=== PATIENT | female | born 1985 | race Caucasian/White ===

== ENCOUNTER 2019-07-17 01:54 | Emergency (ER) | payer SELFPAY ==
--- NOTE | 2019-07-17 03:00 | ER Document Report ---
ED General - General Chief Complaint: Swelling of Lower Extremity Stated Complaint: LEG SWELLING Time Seen by Provider: 07/17/19 02:50 Primary Care Provider: [facility] [Provider Group] - Follow up in 1 week BO GUPTA MD [ACTIVE STAFF] - Follow up as needed Notes: Patient is a 33-year-old female with a history of morbid obesity, smoking, and chronic lower extremity edema that comes emergency department for chief complaint of swelling to her hands and her feet much more than usual. She states that she is on Lasix 40 mg twice a day, she has been compliant, however over the past 2 days she has had significantly more swelling than usual and now her legs hurt. She also states that she has more generalized weakness, she generally does not feel good, and she has more dyspnea on exertion. She denies chest pain, fever, cough, she states she still urinating. TRAVEL OUTSIDE OF THE [place] IN LAST 30 DAYS: No - Related Data Allergies/Adverse Reactions: No Known Allergies Allergy (Verified 07/17/19 02:37) Past Medical History - General Information source: Patient - Social History Smoking Status: Current Every Day Smoker Chew tobacco use (# tins/day): No Smoking Education Provided: Yes - <3 min Frequency of alcohol use: None Drug Abuse: None Lives with: Spouse/Significant other Family History: Reviewed & Not Pertinent Patient has suicidal ideation: No Patient has homicidal ideation: No Renal/ Medical History: Reports: Hx Ovarian Cysts - PCO S Past Surgical History: Reports: Hx Adenoidectomy, Hx Cholecystectomy, Hx Tonsillectomy - and addenoids - Immunizations Immunizations up to date: Yes Hx Diphtheria, Pertussis, Tetanus Vaccination: Yes Review of Systems - Review of Systems Constitutional: No symptoms reported EENT: No symptoms reported Cardiovascular: See HPI Respiratory: See HPI Gastrointestinal: No symptoms reported Genitourinary: No symptoms reported Female Genitourinary: No symptoms reported Musculoskeletal: No symptoms reported Skin: No symptoms reported Hematologic/Lymphatic: No symptoms reported Neurological/Psychological: No symptoms reported Physical Exam - Vital signs Vitals: Temp Pulse Resp BP Pulse Ox 98.4 F 108 H 20 147/87 H 96 07/17/19 01:58 07/17/19 01:58 07/17/19 01:58 07/17/19 01:58 07/17/19 01:58 - Notes Notes: GENERAL: Alert, interacts well. No acute distress. HEAD: Normocephalic, atraumatic. EYES: Pupils equal, round, and reactive to light. Extraocular movements intact. ENT: Oral mucosa moist, tongue midline. Oropharynx unremarkable. Airway patent. NECK: Full range of motion. Supple. Trachea midline. LUNGS: Clear to auscultation bilaterally, no wheezes, rales, or rhonchi. No respiratory distress. HEART: Regular rate and rhythm. No murmur ABDOMEN: Soft, non-tender. Non-distended. Bowel sounds present in all 4 quadrants. GENITOURINARY: Deferred EXTREMITIES: Moves all 4 extremities spontaneously. 2+ pitting edema of the lower extremities below the knee. Small amount of skin staining of the lower ext remities at the distal anterior distal tibia as well. BACK: no cervical, thoracic, lumbar midline tenderness. No saddle anesthesia, normal distal neurovascular exam. Moves all extremities in full range of motion. NEUROLOGICAL: Alert and oriented x3. Normal speech. Cranial nerves II through XII grossly intact. PSYCH: Normal affect, normal mood. SKIN: Warm, dry, normal turgor. No rashes or lesions noted. Course - Re-evaluation Re-evalutation: Patient talkative, I was able to lay her flat and she did not have any difficulty breathing, she was able to ambulate without dyspnea. No hypoxia. She is not tachycardic on my exam. EKG nonischemic. No hypertrophy either. Chest x-ray unremarkable without vascular congestion. Patient has peripheral edema but no other notable findings. Patient also has findings of developing venous insufficiency with skin staining. Urinalysis and protein on chemistry do not suggest nephrotic syndrome. CBC unremarkable, chemistry unremarkable, BNP is not elevated, troponin is not elevated. Appears to be isolated peripheral edema who is venous insufficiency. Patient took a dose of Lasix prior to arrival and she is urinated twice. She states that she is not having as much success with that this week however. Patient will be doubled up on her Lasix for the next several days, be given p otassium supplement, and she will be established with a local primary care (she had primary care at home, she is running out of Lasix now, she is looking for primary care here). She is also waiting for insurance to kick in. She will be referred to clinic where she does not need it first. Patient given IV Lasix here. Discussed all labs, discussed recommendations, placed in JUSTIN compression stockings here, discussed follow-up, discussed return precautions. Patient states understanding and agreement. - Vital Signs Vital signs: Temp Pulse Resp BP Pulse Ox 98.4 F 108 H 20 127/54 H 93 07/17/19 01:58 07/17/19 01:58 07/17/19 04:59 07/17/19 05:00 07/17/19 04:59 - Laboratory Result Diagrams: 07/17/19 03:43 07/17/19 03:43 - EKG Interpretation by Me Additional EKG results interpreted by me: EKG shows sinus rhythm at a rate of 100, QTc 449, no T wave inversions or ST segment changes in consecutive leads, MO interval of 140. Normal axis. Discharge - Discharge Clinical Impression: Swelling of lower extremity Condition: Stable Disposition: HOME, SELF-CARE Additional Instructions: There is no evidence of congestive heart failure, kidney failure, or other concerning findings on your evaluation. This appears to be fluid retention with venous insufficiency. I recommend elevation of your legs as much as possible, use of the compression stockings especially at night, and increase the Lasix to 40 mg twice a day for the next 5 days before resuming your normal dosing. Take potassium supplement as prescribed as well. Follow-up close with the primary referrals listed for additional management. Return if you worsen including difficulty breathing, chest pain, developing or spreading redness, fever, or any other concerning symptoms. Prescriptions: Furosemide [Lasix 40 mg Tablet] 40 mg PO QAM #60 tablet Potassium Chloride 10 meq PO DAILY #14 tablet.er Forms: Return to Work, Treatment of Relative/Child Referrals: [facility] [Provider Group] - Follow up in 1 week BO GUPTA MD [ACTIVE STAFF] - Follow up as needed
[2019-07-17 03:57] LABS: ABSOLUTE BASOPHILS # (AUTO) 0.1 10^3/uL (0.0-0.2); ABSOLUTE EOSINOPHILS # (AUTO) 0.3 10^3/uL (0.0-0.6); ABSOLUTE LYMPHOCYTES (AUTO) 3.9 10^3/uL (0.5-4.7); ABSOLUTE MONOCYTES (AUTO) 0.7 10^3/uL (0.1-1.4); ABSOLUTE NEUT (AUTO) 5.2 10^3/uL (1.7-8.2); BASOPHILS % (AUTO) 0.8 % (0-2); EOSINOPHILS % (AUTO) 2.6 % (0-6); HEMATOCRIT 41.1 % (36.0-47.0); HEMOGLOBIN 14.2 g/dL (12.0-15.5); LYMPHOCYTES % (AUTO) 38.3 % (13-45); MEAN CORPUSCULAR HGB CONC 34.6 g/dL (32.0-36.0); MEAN CORPUSCULAR VOLUME 87 fl (80-97); MONOCYTES % (AUTO) 6.7 % (3-13); PLATELET COUNT 195 10^3/uL (150-450); RED BLOOD COUNT 4.75 10^6/uL (3.72-5.28); RED CELL DISTRIBUTION WIDTH 13.9 % (11.5-14.0); SEGMENTED NEUTROPHILS % (AUTO) 51.6 % (42-78); TOTAL CELLS COUNTED % (AUTO) 100 %; WHITE BLOOD COUNT 10.1 10^3/uL (4.0-10.5)
[2019-07-17 04:14] LABS: ALBUMIN 3.7 g/dL (3.5-5.0); ALKALINE PHOSPHATASE 121 U/L (38-126); ANION GAP 8 (5-19); ASPARTATE AMINO TRANSFERASE 26 U/L (14-36); BILIRUBIN,DIRECT 0.2 mg/dL (0.0-0.4); BILIRUBIN,TOTAL 0.3 mg/dL (0.2-1.3); BLOOD UREA NITROGEN 13 mg/dL (7-20); CALCIUM 8.9 mg/dL (8.4-10.2); CARBON DIOXIDE 27 mmol/L (22-30); CHLORIDE 105 mmol/L (98-107); GLUCOSE 91 mg/dL (75-110); POTASSIUM 3.9 mmol/L (3.6-5.0); TOTAL PROTEIN 6.5 g/dL (6.3-8.2)
[2019-07-17 04:28] LABS: NT PRO BNP 87 pg/mL (<125)
[2019-07-17 04:29] LABS: TROPONIN I < 0.012 ng/mL
[2019-07-17] MEDS ORDERED: FUROSEMIDE INJ/PF 40 MG/4 ML SDV IV ONE (04:37)
--- NOTE | 2019-07-17 04:46 | RADIOLOGY REPORT (SQ) ---
CLINICAL HISTORY: shortness of breath COMPARISON: None. TECHNIQUE: XR CHEST 2 VIEWS 07/17/2019 2:58 AM CDT FINDINGS: Cardiac silhouette is normal in size. Lungs are clear without consolidation, atelectasis, mass or edema. There is no pleural effusion. There is no pneumothorax. There are no acute osseous findings. IMPRESSION: Clear lungs.
[2019-07-17 05:15] VITALS: BP 127/54
[2019-07-17 05:20] LABS: APPEARANCE,URINE CLEAR; BILIRUBIN,URINE NEGATIVE (NEGATIVE); COLOR,URINE STRAW; GLUCOSE, URINE NEGATIVE (NEGATIVE); KETONES,URINE NEGATIVE (NEGATIVE); LEUKOCYTE ESTERASE,URINE NEGATIVE (NEGATIVE); NITRITE,URINE NEGATIVE (NEGATIVE); PROTEIN,URINE NEGATIVE (NEGATIVE); URINE SPECIFIC GRAVITY 1.008; UROBILINOGEN,URINE NEGATIVE mg/dL (<2.0)
--- NOTE | 2019-07-18 08:53 | EKG REPORT ---
SEVERITY:- OTHERWISE NORMAL ECG - SINUS TACHYCARDIA : Confirmed by: Pascual Ivan 18-Jul-2019 08:52:38
== END 2019-07-17 05:57 | disposition home or self-care (01) ==
LOC: ER 01:54
DX: M79.89 Other specified soft tissue disorders (principal); R53.1 Weakness; F17.200 Nicotine dependence, unspecified, uncomplicated; Z90.49 Acquired absence of other specified parts of digestive tract
CPT/HCPCS: 93005; 99284; 96374; 36415; 84703; 85025; 80053; 81001; 84484; 83880; 71046; 93010; J1940

== ENCOUNTER 2019-07-26 23:44 | Emergency (ER) | payer SELFPAY ==
[2019-07-27] MEDS ORDERED: PREDNISONE 20 MG TABLET PO ONE (01:38)
[2019-07-27] MEDS ORDERED: IPRATROPIUM/ALBUTEROL 0.5-2.5 MG/3 ML AMPUL NEB ONE (01:38)
--- NOTE | 2019-07-27 01:43 | ER Document Report ---
HPI - HPI Patient complains to provider of: cough, nasal congestion, ear pain Time Seen by Provider: 07/27/19 01:06 Onset: Other - 4 days Onset/Duration: Persistent Pain Level: Denies Context: This 33-year-old female with history of PCOS presents emergency department with complaints of cough nasal congestion and right ear pain for the past 4 days. Patient reports that her doctor back home called her in a prescription for amoxicillin. She is been taking amoxicillin 3 times a day for 2 days. Reports a fever of 99.8. Denies vomiting diarrhea. Denies history of asthma cardiac disease. Associated Symptoms: Nonproductive cough, Earache Exacerbated by: Denies Relieved by: Denies Similar symptoms previously: Yes Recently seen / treated by doctor: Yes - REPRODUCTIVE Reproductive: DENIES: : Past Medical History - General Information source: Patient Last Menstrual Period: 2 years ago history of PCOS - Social History Smoking Status: Unknown if Ever Smoked Cigarette use (# per day): No Chew tobacco use (# tins/day): No Frequency of alcohol use: None Drug Abuse: None Family History: Reviewed & Not Pertinent Patient has suicidal ideation: No Patient has homicidal ideation: No Renal/ Medical History: Reports: Hx Ovarian Cysts - PCO S Past Surgical History: Reports: Hx Adenoidectomy, Hx Cholecystectomy, Hx Tonsillectomy - and addenoids - Immunizations Immunizations up to date: Yes Hx Diphtheria, Pertussis, Tetanus Vaccination: Yes Vertical Provider Document - CONSTITUTIONAL Agree With Documented VS: Yes Exam Limitations: No Limitations General Appearance: WD/WN, No Apparent Distress - Nontoxic looking - INFECTION CONTROL TRAVEL OUTSIDE OF THE [place] IN LAST 30 DAYS: No - HEENT HEENT: Atraumatic, Normocephalic, Tympanic Membrane Red - Right side. negative: Conjuctival Injection, Pharyngeal Exudate, Pharyngeal Erythema - NECK Neck: Normal Inspection, Supple. negative: Lymphadenopathy-Left, Lymphadenopathy-Right - RESPIRATORY Respiratory: No Respiratory Distress, Wheezing - CARDIOVASCULAR Cardiovascular: Regular Rate, Regular Rhythm - GI/ABDOMEN Gastrointestinal: Abdomen Soft, Abdomen Non-Tender - BACK Back: Normal Inspection - MUSCULOSKELETAL/EXTREMETIES Musculoskeletal/Extremeties: MAEW, FROM, Non-Tender - NEURO Level of Consciousness: Awake, Alert, Appropriate Motor/Sensory: No Motor Deficit Course - Re-evaluation Re-evalutation: 07/27/19 01:43 33-year-old female presents emergency department with cough nasal congestion and right ear pain for the past 4 days. Her primary care provider called in a prescription for amoxicillin she is been taking amoxicillin 3 times a day for the past 2 days without relief of symptoms. Patient reports low-grade temperature of 99.8. Reports she is taking multiple [id number] medications with about relief of symptoms. 07/27/19 02:06 Patient reports she feels a little bit better after the DuoNeb treatment. Still coughing, tight will repeat neb treatment with albuterol. 07/27/19 Patient signed much better. Will be discharged with an inhaler prescription for steroids. She was instructed to continue her amoxicillin follow-up with the primary care provider she verbalized understanding to all instructions. Dictation of this chart was performed using voice recognition software; therefore, there may be some unintended grammatical errors. - Vital Signs Vital signs: Temp Pulse Resp BP Pulse Ox 97.9 F 78 20 127/65 H 98 07/26/19 23:57 07/26/19 23:57 07/26/19 23:57 07/26/19 23:57 07/26/19 23:53 Discharge - Discharge Clinical Impression: Cough, Wheeze, Nasal congestion, Right otitis media Condition: Stable Disposition: HOME, SELF-CARE Instructions: Inhaled Bronchodilators ([facility]), Steroid Medication Additional Instructions: *You have been evaluated for cold symptoms today, cough, wheeze, otitis media, nasal congestion *Increase fluid intake as discussed *Take the amoxicillin your primary care provider ordered for you as prescribed *Take the steroids as prescribed use the inhaler has indicated *Monitor your temperature, take Tylenol as indicated *Follow up with a primary care provider within 1 week. *Return to ED for worsening condition, changes, needs, difficulty breathing concerns. Monitor your blood pressure. Your blood pressure was elevated today. This may be because you were anxious, in pain or because you need medication. It is important to follow up with your primary care provider for full evaluation. Prescriptions: Prednisone [Deltasone 10 mg Tablet] 10 mg PO ASDIR PRN #21 tablet PRN Reason: Forms: Elevated Blood Pressure, Return to Work
[2019-07-27] MEDS ORDERED: ALBUTEROL SULFATE 0.083% NEB 2.5 MG/3 ML AMPUL NEB ONE (02:06)
[2019-07-27] MEDS ORDERED: ALBUTEROL SULFATE HFA (90 MCG/PUFF) 8 GM MDI (1 MDI/ER DISP) IH ONE (02:47)
[2019-07-27 02:56] VITALS: BP 116/47
== END 2019-07-27 03:00 | disposition home or self-care (01) ==
LOC: ER 23:44
DX: H66.91 Otitis media, unspecified, right ear (principal); R05 Cough; R06.2 Wheezing; R09.81 Nasal congestion; H92.01 Otalgia, right ear
CPT/HCPCS: J7512; J3490; J7620; 94640; 99283

== ENCOUNTER 2019-07-28 17:35 | Inpatient (IN) | payer SELFPAY ==
[2019-07-28] MEDS ORDERED: IPRATROPIUM/ALBUTEROL 0.5-2.5 MG/3 ML AMPUL NEB ONE ×2 (18:11→19:22)
[2019-07-28] MEDS ORDERED: CETIRIZINE 10 MG TABLET PO ONE (18:12)
--- NOTE | 2019-07-28 18:19 | ER Document Report ---
ED Medical Screen (RME) - General Chief Complaint: Breathing Difficulty Stated Complaint: CHEST CONJECTION/SHORTNESS OF BREATH Time Seen by Provider: 07/28/19 18:05 Notes: Patient is a 33-year-old female who presents to the emergency department with a chief complaint of a cough and shortness of breath. She is been having his symptoms for the past 6 days. She was given amoxicillin by her primary care provider and she is currently on day 4 of taking her medication. Patient currently takes 40 mg of Lasix daily. Exam: Inspiratory and Expiratory wheezes throughout all lung wright. I have greeted and performed a rapid initial assessment of this patient. A comprehensive ED assessment and evaluation of the patient, analysis of test results and completion of medical decision making process will be conducted by an additional ED providers. TRAVEL OUTSIDE OF THE [place] IN LAST 30 DAYS: No - Related Data Allergies/Adverse Reactions: No Known Allergies Allergy (Verified 07/28/19 17:58) Past Medical History - Social History Chew tobacco use (# tins/day): No Frequency of alcohol use: None Family history: DM, Other - renal disease Renal/ Medical History: Reports: Hx Ovarian Cysts - PCO S Past Surgical History: Reports: Hx Adenoidectomy, Hx Cholecystectomy, Hx Tonsillectomy - and addenoids - Immunizations Immunizations up to date: Yes Hx Diphtheria, Pertussis, Tetanus Vaccination: Yes Physical Exam - Vital signs Vitals: Temp Pulse BP Pulse Ox 97.9 F 104 H 135/75 H 96 07/28/19 17:46 07/28/19 17:46 07/28/19 17:46 07/28/19 17:46 Course - Vital Signs Vital signs: Temp Pulse Resp BP Pulse Ox 97.9 F 104 H 135/75 H 96 07/28/19 17:46 07/28/19 17:46 07/28/19 17:46 07/28/19 17:46
[2019-07-28 18:36] LABS: ABSOLUTE BASOPHILS # (AUTO) 0.1 10^3/uL (0.0-0.2); ABSOLUTE EOSINOPHILS # (AUTO) 0.3 10^3/uL (0.0-0.6); ABSOLUTE LYMPHOCYTES (AUTO) 3.2 10^3/uL (0.5-4.7); ABSOLUTE MONOCYTES (AUTO) 0.8 10^3/uL (0.1-1.4); ABSOLUTE NEUT (AUTO) 4.7 10^3/uL (1.7-8.2); BASOPHILS % (AUTO) 1.5 % (0-2); EOSINOPHILS % (AUTO) 3.5 % (0-6); HEMATOCRIT 40.4 % (36.0-47.0); HEMOGLOBIN 13.8 g/dL (12.0-15.5); LYMPHOCYTES % (AUTO) 35.2 % (13-45); MEAN CORPUSCULAR HEMOGLOBIN 29.6 pg (27.0-33.4); MEAN CORPUSCULAR HGB CONC 34.1 g/dL (32.0-36.0); MEAN CORPUSCULAR VOLUME 87 fl (80-97); MONOCYTES % (AUTO) 8.4 % (3-13); PLATELET COUNT 179 10^3/uL (150-450); RED BLOOD COUNT 4.65 10^6/uL (3.72-5.28); SEGMENTED NEUTROPHILS % (AUTO) 51.4 % (42-78); TOTAL CELLS COUNTED % (AUTO) 100 %; WHITE BLOOD COUNT 9.1 10^3/uL (4.0-10.5)
--- NOTE | 2019-07-28 18:54 | RADIOLOGY REPORT (SQ) ---
EXAM DESCRIPTION: CHEST 2 VIEWS COMPLETED DATE/TIME: 07/28/2019 6:40 pm REASON FOR STUDY: shortness of breath COMPARISON: 07/17/2019 EXAM PARAMETERS: NUMBER OF VIEWS: two views TECHNIQUE: Digital Frontal and Lateral radiographic views of the chest acquired. RADIATION DOSE: NA LIMITATIONS: none FINDINGS: LUNGS AND PLEURA: No opacities, masses or pneumothorax. No pleural effusion. MEDIASTINUM AND HILAR STRUCTURES: No masses or contour abnormalities. HEART AND VASCULAR STRUCTURES: Heart normal size. No evidence for failure. BONES: No acute findings. HARDWARE: None in the chest. OTHER: No other significant finding. IMPRESSION: NO ACUTE RADIOGRAPHIC FINDING IN THE CHEST. TECHNICAL DOCUMENTATION: JOB ID: [id number] [employer]- All Rights Reserved Reading location - IP/workstation name: [email or web address]
[2019-07-28 18:59] LABS: ALBUMIN 3.4 g/dL (3.5-5.0); ALKALINE PHOSPHATASE 101 U/L (38-126); ANION GAP 6 (5-19); ASPARTATE AMINO TRANSFERASE 34 U/L (14-36); BILIRUBIN,DIRECT 0.1 mg/dL (0.0-0.4); BILIRUBIN,TOTAL 0.2 mg/dL (0.2-1.3); BLOOD UREA NITROGEN 13 mg/dL (7-20); CALCIUM 9.2 mg/dL (8.4-10.2); CARBON DIOXIDE 26 mmol/L (22-30); CHLORIDE 109 mmol/L (98-107); GLUCOSE 83 mg/dL (75-110); POTASSIUM 4.5 mmol/L (3.6-5.0); TOTAL PROTEIN 6.3 g/dL (6.3-8.2)
--- NOTE | 2019-07-28 21:28 | ER Document Report ---
ED Respiratory Problem - General Mode of Arrival: Ambulatory Information source: Patient TRAVEL OUTSIDE OF THE [place] IN LAST 30 DAYS: No - HPI Patient complains to provider of: Cough, Short of breath Onset: Other Duration: Worse/persistent - 6 days Initiating Event: URI Quality of pain: Other - Tight Context: denies: Hx asthma, Smoker Cough: Nonproductive Sputum amount: None Associated symptoms: Cough, Short of breath, Wheezing Similar symptoms previously: Yes Recently seen / treated by doctor: Yes <STEVE JUSTIN - Last Filed: 07/29/19 01:13> <JOJO SAAVEDRA - Last Filed: 07/29/19 02:32> - General Chief Complaint: Breathing Difficulty Stated Complaint: CHEST CONGESTION/SHORTNESS OF BREATH Time Seen by Provider: 07/28/19 18:05 Notes: 33-year-old female presents to ED for complaint of shortness of breath cough and very ill for the last 6 days. She states she has been seen in here for increasing swelling to her legs and is been placed on Lasix and which has been increased and she is currently taking 40 mg daily. She states she was given amoxicillin by her primary care doctor and she is not getting any better. She states she has been given 3 breathing treatments today and she is already on steroids they were started a couple days ago when she came into the emergency room. Patient has inspiratory and expiratory wheezes throughout all lungs wright. She states she is very short of breath still. Patient is morbidly obese at 193.5 kg with a BMI of 68.9 (STEVE JUSTIN) - Related Data Allergies/Adverse Reactions: No Known Allergies Allergy (Verified 07/28/19 17:58) Past Medical History - General Information source: Patient - Social History Smoking Status: Never Smoker Chew tobacco use (# tins/day): No Frequency of alcohol use: None Lives with: Family Family History: Reviewed & Not Pertinent Patient has suicidal ideation: No Patient has homicidal ideation: No - Past Medical History Cardiac Medical History: Reports: None Pulmonary Medical History: Reports: None EENT Medical History: Reports: None Neurological Medical History: Reports: None Endocrine Medical History: Reports: None Renal/ Medical History: Reports: Hx Ovarian Cysts - PCO S Malignancy Medical History: Reports: None GI Medical History: Reports: None Musculoskeletal Medical History: Reports None Skin Medical History: Reports None Psychiatric Medical History: Reports: None Traumatic Medical History: Reports: None Infectious Medical History: Reports: None Past Surgical History: Reports: Hx Adenoidectomy, Hx Cholecystectomy, Hx Tonsillectomy - Immunizations Immunizations up to date: Yes Hx Diphtheria, Pertussis, Tetanus Vaccination: Yes <STEVE JUSTIN Last Filed: 07/29/19 01:13> Review of Systems - Review of Systems Constitutional: Recent illness EENT: No symptoms reported Cardiovascular: No symptoms reported Respiratory: Cough, Hurts to breathe, Short of breath, Wheezing Gastrointestinal: No symptoms reported Genitourinary: No symptoms reported Female Genitourinary: No symptoms reported Musculoskeletal: No symptoms reported Skin: No symptoms reported Hematologic/Lymphatic: No symptoms reported Neurological/Psychological: No symptoms reported -: Yes All other systems reviewed and negative <STEVE JUSTIN Last Filed: 07/29/19 01:13> Physical Exam - Vital signs Interpretation: Normal - General General appearance: Appears well, Alert - HEENT Head: Normocephalic, Atraumatic Eyes: Normal Pupils: PERRL Ears: Normal External canal: Normal Tympanic membrane: Normal Sinus: Normal Nasal: Normal Mouth/Lips: Normal Pharynx: Normal Neck: Normal - Respiratory Breath sounds: Decreased air movement, Wheezing Chest palpation: Normal - Cardiovascular Rhythm: Regular Heart sounds: Normal auscultation Murmur: No - Abdominal Inspection: Normal Distension: No distension Bowel sounds: Normal Tenderness: Nontender Organomegaly: No organomegaly - Back Back: Normal, Nontender - Extremities General upper extremity: Normal inspection, Nontender, Normal color, Normal ROM, Normal temperature General lower extremity: Normal inspection, Nontender, Normal color, Normal ROM, Normal temperature, Normal weight bearing. No: Kandi's sign - Neurological Neuro grossly intact: Yes Cognition: Normal Orientation: AAOx4 Ca[place]field Coma Scale Eye Opening: Spontaneous Kimberly Coma Scale Verbal: Oriented Kimberly Coma Scale Motor: Obeys Commands Kimberly Coma Scale Total: 15 Speech: Normal Motor strength normal: LUE, RUE, LLE, RLE Sensory: Normal - Psychological Associated symptoms: Normal affect, Normal mood - Skin Skin Temperature: Warm Skin Moisture: Dry Skin Color: Normal <STEVE JUSTIN Last Filed: 07/29/19 01:13> - Vital signs Vitals: Temp Pulse BP Pulse Ox 97.9 F 104 H 135/75 H 96 07/28/19 17:46 07/28/19 17:46 07/28/19 17:46 07/28/19 17:46 Course - Laboratory Result Diagrams: 07/28/19 18:24 07/28/19 18:24 - Diagnostic Test Radiology reviewed: Image reviewed, Reports reviewed - Consults Dr Parra Time consulted: 22:30 Consulted provider: other <STEVE JUSTIN - Last Filed: 07/29/19 01:13> - Laboratory Result Diagrams: 07/28/19 18:24 07/28/19 18:24 <JOJO SAAVEDRA - Last Filed: 07/29/19 02:32> - Re-evaluation Re-evalutation: 07/28/19 22:32 Patient continues to wheeze after all of her treatments. She has inspiratory and expiratory wheezes throughout. I have consulted Dr. saavedra who came and examined the patient. She has ordered BiPAP magnesium more breathing treatments and instructed me to call Dr. Parra for admission. I have consulted Dr. Parra who stated that I needed to get an ABG and page him with the results before he comes to admit the patient. (STEVE JUSTIN) 07/29/19 02:32 I did personally see and examined this patient in conjunction with Steve Justin. Patient continues to have wheezing after failing outpatient treatment with steroids and breathing treatments. Patient is continuing to worsen here in the emergency department despite further steroids and breathing treatments. Patient is acutely short of breath, tachypneic and tachycardic. Patient appears to be in acute distress. I have ordered magnesium, BiPAP and further breathing treatments. I have recommended admission. (JOJO SAAVEDRA) - Vital Signs Vital signs: Temp Pulse Resp BP Pulse Ox 97.9 F 93 22 H 135/75 H 94 07/28/19 17:46 07/29/19 02:18 07/29/19 02:18 07/28/19 17:46 07/29/19 02:18 - Laboratory Laboratory results interpreted by me: 07/28/19 07/28/19 18:24 22:45 Carbonic Acid 1.03 L ABG pCO2 34.2 L ABG pO2 73.7 L Chloride 109 H Albumin 3.4 L - Consults Dr Parra Reason for consultation: 07/28/19 22:34 Intractable wheezing after multiple breathing treatments. She was given a lbuterol inhaler and prednisone several days ago in the ER and is continued to get more sick. She returns today with wheezing throughout. Have consulted Dr. Parra for admission (STEVE JUSTIN) Critical Care Note - Critical Care Note Total time excluding time spent on procedures (mins): 45 <JOJO SAAVEDRA - Last Filed: 07/29/19 02:32> Discharge - Discharge Admitting Provider: Fidel (Hospitalist) Unit Admitted: Telemetry <STEVE JUSTIN - Last Filed: 07/29/19 01:13> <JOJO SAAVEDRA - Last Filed: 07/29/19 02:32> - Discharge Clinical Impression: Cough, intractable wheezing Disposition: ADMITTED INPATIENT
[2019-07-28] MEDS ORDERED: METHYLPREDNISOLONE INJ 125 MG/2 ML SDV IV ONE (22:19)
[2019-07-28] MEDS ORDERED: ALBUTEROL SULFATE 0.083% NEB 2.5 MG/3 ML AMPUL NEB ONE (22:19)
[2019-07-28] MEDS ORDERED: IPRATROPIUM/ALBUTEROL 0.5-2.5 MG/3 ML AMPUL NEB PRN (22:39)
[2019-07-28] MEDS ORDERED: MAG HYDROX/AL HYDROX/SIMETH SUSP 30 ML UDCUP PO PRN (22:39)
[2019-07-28] MEDS ORDERED: ACETAMINOPHEN 325 MG TABLET PO PRN (22:39)
[2019-07-28] MEDS ORDERED: HYDRALAZINE HCL INJ/PF 20 MG/1 ML SDV IV PRN (22:42)
[2019-07-28 22:58] LABS: PHOSPHORUS 3.7 mg/dL (2.5-4.5)
[2019-07-28] MEDS: MAGNESIUM SULFATE/D5W 1 GM/100 ML RTUPB IV SCH (23:00)
[2019-07-28 23:09] LABS: ARTERIAL BLOOD BASE EXCESS -1.7 mmol/L; ARTERIAL BLOOD H2CO3 1.03 mmol/L (1.05-1.35); ARTERIAL BLOOD HCO3 21.9 mmol/L (20-24); ARTERIAL BLOOD O2 SATURATION 95.3 % (94-98); ARTERIAL BLOOD PCO2 34.2 mmHg (35-45); ARTERIAL BLOOD PH 7.43 (7.35-7.45); ARTERIAL BLOOD PO2 73.7 mmHg (80-100)
[2019-07-28] MEDS: PREDNISONE 20 MG TABLET PO SCH (23:11)
[2019-07-28 23:15] LABS: ARTERIAL BLOOD FIO2 ROOM AIR
[2019-07-28] MEDS ORDERED: FLUTICASONE NASAL SPRAY 50 MCG/SPRY 120 SPRAY/16 GM ONE (23:35)
[2019-07-28] MEDS: FLUTICASONE NASAL SPRAY 50 MCG/SPRY 120 SPRAY/16 GM NASL SCH (23:40)
[2019-07-29] MEDS: MAGNESIUM SULFATE/D5W 1 GM/100 ML RTUPB IV SCH (00:04)
[2019-07-29] MEDS: CHLORPHENIRAMINE MALEATE 4 MG TABLET PO SCH ×2 (00:11→05:23)
[2019-07-29] MEDS: IPRATROPIUM/ALBUTEROL 0.5-2.5 MG/3 ML AMPUL NEB SCH ×2 (02:18→07:43)
--- NOTE | 2019-07-29 04:59 | PDOC H&P ---
History of Present Illness Admission Date/PCP: 07/28/19 23:51 Patient complains of: Shortness of breath and nonproductive cough History of Present Illness: GAVI KENNEDY is a 33 year old female with a past medical history of polycystic ovarian syndrome, morbid obesity presents with 1 week of sinus congestion, rhinorrhea and postnasal drip. Amoxicillin was initiated by primary care without significant improvement prompting reevaluation in the emergency [facility] where she is found to have bilateral wheezing and rhonchi. She started on steroids, albuterol and Atrovent, BiPAP and referred to the hospitalist for admission. Patient denies previous episode she is otherwise felt well she is not had recent change of medications. Past Medical History Cardiac Medical History: Reports: None Pulmonary Medical History: Reports: None EENT Medical History: Reports: None Neurological Medical History: Reports: None Endocrine Medical History: Reports: None Malignancy Medical History: Reports: None GI Medical History: Reports: None Musculoskeltal Medical History: Reports: None Skin Medical History: Reports: None Psychiatric Medical History: Reports: None Traumatic Medical History: Reports: None Infectious Medical History: Reports: None Past Surgical History Past Surgical History: Reports: Adenoidectomy, Cholecystectomy, Tonsillectomy Social History Information Source: Patient Lives with: Family Smoking Status: Never Smoker Electronic Cigarette use?: No Frequency of Alcohol Use: None Drugs: None - Advance Directive Resuscitation Status: Full Code Family History Family History: Reviewed & Not Pertinent Parental Family History Reviewed: Yes Children Family History Reviewed: Yes Sibling(s) Family History Reviewed.: Yes Medication/Allergy Home Medications: Hydrocodone/Acetaminophen [Breese 5-325 mg Tablet] 1 - 2 tab PO ASDIR #12 tablet 04/09/16 Metformin HCl [Glucophage 500 mg Tablet] 500 mg PO BID #60 tablet 04/09/16 Hydrocodone/Acetaminophen [Breese 5-325 mg Tabs #6 ER Disp] 6 tab PO Q6H PRN #1 dspk 08/23/16 Ibuprofen [Motrin 600 Mg Tablet] 600 mg PO TID #15 tablet 08/23/16 Amoxicillin/Potassium Clav [Amox-Clav 875-125 mg Tablet] 1 each PO Q12H #20 tablet 09/05/16 Hydrocodone/Acetaminophen [Breese 5-325 mg Tablet] 1 tab PO Q6H PRN #10 tablet 09/05/16 Hydrocodone/Acetaminophen [Breese 5-325 mg Tablet] 1 - 2 tab PO Q4 PRN #10 tablet 09/10/16 Meclizine HCl 25 mg PO Q6 PRN #20 tablet 09/17/16 Ondansetron HCl [Zofran 4 mg Tablet] 1 - 2 tab PO Q4H PRN #10 tablet 10/07/16 Benzonatate [Tessalon Perles 100 mg Capsule] 100 mg PO ASDIR PRN #40 capsule 10/11/16 Furosemide [Lasix 40 mg Tablet] 40 mg PO QAM #60 tablet 07/17/19 Potassium Chloride 10 meq PO DAILY #14 tablet.er 07/17/19 Prednisone [Deltasone 10 mg Tablet] 10 mg PO ASDIR PRN #21 tablet 07/27/19 Allergies/Adverse Reactions: No Known Allergies Allergy (Verified 07/28/19 17:58) Review of Systems Constitutional: ABSENT: chills, fever(s), headache(s), weight gain, weight loss Eyes: ABSENT: visual disturbances Ears: ABSENT: hearing changes Cardiovascular: ABSENT: chest pain, dyspnea on exertion, edema, orthropnea, palpitations Respiratory: ABSENT: cough, hemoptysis Gastrointestinal: ABSENT: abdominal pain, constipation, diarrhea, hematemesis, hematochezia, nausea, vomiting Genitourinary: ABSENT: dysuria, hematuria Musculoskeletal: ABSENT: joint swelling Integumentary: ABSENT: rash, wounds Neurological: ABSENT: abnormal gait, abnormal speech, confusion, dizziness, focal weakness, syncope Psychiatric: ABSENT: anxiety, depression, homidical ideation, suicidal ideation Endocrine: ABSENT: cold intolerance, heat intolerance, polydipsia, polyuria Hematologic/Lymphatic: ABSENT: easy bleeding, easy bruising Physical Exam Vital Signs: Temp Pulse Resp BP Pulse Ox 98.4 F 93 20 136/61 H 91 L 07/29/19 03:01 07/29/19 02:18 07/29/19 04:33 07/29/19 03:01 07/29/19 04:33 Intake & Output 07/27/19 07/28/19 07/29/19 11:59 11:59 11:59 Intake Total 197 Balance 197 Weight 193.5 kg General appearance: PRESENT: cooperative, mild distress, morbidly obese, well- developed Head exam: PRESENT: atraumatic, normocephalic Eye exam: PRESENT: conjunctiva pink, EOMI, PERRLA. ABSENT: scleral icterus Ear exam: PRESENT: normal external ear exam Mouth exam: PRESENT: moist, tongue midline Neck exam: ABSENT: carotid bruit, JVD, lymphadenopathy, thyromegaly Respiratory exam: PRESENT: accessory muscle use, prolonged expiratory phas, retraction, rhonchi, symmetrical, tachypnea. ABSENT: rales, wheezes Cardiovascular exam: PRESENT: RRR. ABSENT: diastolic murmur, rubs, systolic murmur Pulses: PRESENT: normal dorsalis pedis pul Vascular exam: PRESENT: normal capillary refill GI/Abdominal exam: PRESENT: normal bowel sounds, soft. ABSENT: distended, guarding, mass, organolmegaly, rebound, tenderness Rectal exam: PRESENT: deferred Extremities exam: PRESENT: full ROM. ABSENT: calf tenderness, clubbing, pedal edema Neurological exam: PRESENT: alert, awake, oriented to person, oriented to place, oriented to time, oriented to situation, CN II-XII grossly intact. ABSENT: motor sensory deficit Psychiatric exam: PRESENT: appropriate affect, normal mood. ABSENT: homicidal ideation, suicidal ideation Results Laboratory Results: 07/28/19 18:24 07/28/19 18:24 07/28/19 07/28/19 07/28/19 18:24 18:24 18:24 WBC 9.1 RBC 4.65 Hgb 13.8 Hct 40.4 MCV 87 MCH 29.6 MCHC 34.1 RDW 14.0 Plt Count 179 Seg Neutrophils % 51.4 Carbonic Acid HCO3/H2CO3 Ratio ABG pH ABG pCO2 ABG pO2 ABG HCO3 ABG O2 Saturation ABG Base Excess FiO2 Sodium 141.1 Potassium 4.5 Chloride 109 H Carbon Dioxide 26 Anion Gap 6 BUN 13 Creatinine 0.74 Est GFR ( Amer) > 60 Glucose 83 Calcium 9.2 Phosphorus 3.7 Magnesium 2.0 Total Bilirubin 0.2 AST 34 Alkaline Phosphatase 101 Total Protein 6.3 Albumin 3.4 L 07/28/19 22:45 WBC RBC Hgb Hct MCV MCH MCHC RDW Plt Count Seg Neutrophils % Carbonic Acid 1.03 L HCO3/H2CO3 Ratio 21:1 ABG pH 7.43 ABG pCO2 34.2 L ABG pO2 73.7 L ABG HCO3 21.9 ABG O2 Saturation 95.3 ABG Base Excess -1.7 FiO2 ROOM AIR Sodium Potassium Chloride Carbon Dioxide Anion Gap BUN Creatinine Est GFR ( Amer) Glucose Calcium Phosphorus Magnesium Total Bilirubin AST Alkaline Phosphatase Total Protein Albumin 07/29/19 07/29/19 00:52 00:52 Troponin I < 0.012 NT-Pro-B Natriuret Pep 140 H Impressions: Chest X-Ray 07/28/19 18:11 IMPRESSION: NO ACUTE RADIOGRAPHIC FINDING IN THE CHEST. Assessment and Plan - Diagnosis (1) Acute sinusitis Is this a current diagnosis for this admission?: Yes Plan: Trial Levaquin, follow-up CBC, consider CT sinus. (2) Acute bronchitis Is this a current diagnosis for this admission?: Yes Plan: Secondary to #1, aggressive pulmonary toilet, albuterol and Atrovent, Levaquin ordered. Follow-up CBC (3) Morbid obesity Is this a current diagnosis for this admission?: Yes Plan: Morbid obesity will evaluate for metabolic cause with evaluation of thyroid function and dietitian consultation
[2019-07-29] MEDS ORDERED: HEPARIN SOD (PORCINE) 5,000 UNIT/ML 1 ML VIAL SUBCUT SCH (06:00)
[2019-07-29 07:04] LABS: ABSOLUTE LYMPHOCYTES (AUTO) 0.9 10^3/uL (0.5-4.7); ABSOLUTE MONOCYTES (AUTO) 0.1 10^3/uL (0.1-1.4); ABSOLUTE NEUT (AUTO) 5.8 10^3/uL (1.7-8.2); BASOPHILS % (AUTO) 0.3 % (0-2); EOSINOPHILS % (AUTO) 0.1 % (0-6); HEMATOCRIT 41.6 % (36.0-47.0); HEMOGLOBIN 14.1 g/dL (12.0-15.5); LYMPHOCYTES % (AUTO) 13.3 % (13-45); MEAN CORPUSCULAR HEMOGLOBIN 29.7 pg (27.0-33.4); MEAN CORPUSCULAR HGB CONC 33.9 g/dL (32.0-36.0); MEAN CORPUSCULAR VOLUME 88 fl (80-97); PLATELET COUNT 162 10^3/uL (150-450); RED BLOOD COUNT 4.75 10^6/uL (3.72-5.28); SEGMENTED NEUTROPHILS % (AUTO) 84.3 % (42-78); TOTAL CELLS COUNTED % (AUTO) 100 %; WHITE BLOOD COUNT 6.8 10^3/uL (4.0-10.5)
[2019-07-29 07:17] LABS: ANION GAP 10 (5-19); BLOOD UREA NITROGEN 12 mg/dL (7-20); CALCIUM 9.1 mg/dL (8.4-10.2); CARBON DIOXIDE 21 mmol/L (22-30); CHLORIDE 109 mmol/L (98-107); GLUCOSE 251 mg/dL (75-110); POTASSIUM 4.6 mmol/L (3.6-5.0)
[2019-07-29] MEDS: PREDNISONE 20 MG TABLET PO SCH (09:19)
[2019-07-29] MEDS: FLUTICASONE NASAL SPRAY 50 MCG/SPRY 120 SPRAY/16 GM NASL SCH (09:19)
--- NOTE | 2019-07-29 09:23 | PDOC PROGRESS REPORT ---
Subjective Progress Note for:: 07/29/19 Subjective:: No adverse events overnight. No new complaints. Blood pressures a little bit elevated but her vital signs overall are stable. She says she feels a lot better than she did when she came in. Said she still gets a little short of breath when she tries to ambulate. Reason For Visit: KATHI MORBID OBESITY,ACUTE URI Physical Exam Vital Signs: Temp Pulse Resp BP Pulse Ox 97.4 F 88 23 H 152/79 H 94 07/29/19 06:32 07/29/19 07:46 07/29/19 08:31 07/29/19 08:31 07/29/19 08:31 Intake & Output 07/28/19 07/29/19 07/30/19 06:59 06:59 06:59 Intake Total 197 Balance 197 Weight 193.5 kg General appearance: PRESENT: no acute distress, cooperative, disheveled, morbidly obese Respiratory exam: PRESENT: decreased breath sounds, prolonged expiratory phas, symmetrical, unlabored, wheezes. ABSENT: accessory muscle use, chest wall tenderness, crackles, rhonchi, tachypnea Cardiovascular exam: PRESENT: RRR, +S1, +S2 Pulses: PRESENT: normal carotid pulses Vascular exam: PRESENT: normal capillary refill GI/Abdominal exam: PRESENT: normal bowel sounds, soft. ABSENT: distended, guarding, rebound, tenderness Extremities exam: ABSENT: clubbing, pedal edema Musculoskeletal exam: PRESENT: normal inspection. ABSENT: deformity Neurological exam: PRESENT: alert, awake, oriented to person, oriented to place, oriented to time, oriented to situation Psychiatric exam: PRESENT: appropriate affect, normal mood Skin exam: PRESENT: dry, warm Results Laboratory Results: 07/29/19 06:40 07/29/19 06:40 07/28/19 07/28/19 07/28/19 18:24 18:24 18:24 WBC 9.1 RBC 4.65 Hgb 13.8 Hct 40.4 MCV 87 MCH 29.6 MCHC 34.1 RDW 14.0 Plt Count 179 Seg Neutrophils % 51.4 Carbonic Acid HCO3/H2CO3 Ratio ABG pH ABG pCO2 ABG pO2 ABG HCO3 ABG O2 Saturation ABG Base Excess FiO2 Sodium 141.1 Potassium 4.5 Chloride 109 H Carbon Dioxide 26 Anion Gap 6 BUN 13 Creatinine 0.74 Est GFR ( Amer) > 60 Glucose 83 Calcium 9.2 Phosphorus 3.7 Magnesium 2.0 Total Bilirubin 0.2 AST 34 Alkaline Phosphatase 101 Total Protein 6.3 Albumin 3.4 L TSH 07/28/19 07/29/19 07/29/19 22:45 06:40 06:40 WBC 6.8 RBC 4.75 Hgb 14.1 Hct 41.6 MCV 88 MCH 29.7 MCHC 33.9 RDW 14.0 Plt Count 162 Seg Neutrophils % 84.3 H Carbonic Acid 1.03 L HCO3/H2CO3 Ratio 21:1 ABG pH 7.43 ABG pCO2 34.2 L ABG pO2 73.7 L ABG HCO3 21.9 ABG O2 Saturation 95.3 ABG Base Excess -1.7 FiO2 ROOM AIR Sodium 140.1 Potassium 4.6 Chloride 109 H Carbon Dioxide 21 L Anion Gap 10 BUN 12 Creatinine 0.62 Est GFR ( Amer) > 60 Glucose 251 H Calcium 9.1 Phosphorus Magnesium Total Bilirubin AST Alkaline Phosphatase Total Protein Albumin TSH 07/29/19 06:40 WBC RBC Hgb Hct MCV MCH MCHC RDW Plt Count Seg Neutrophils % Carbonic Acid HCO3/H2CO3 Ratio ABG pH ABG pCO2 ABG pO2 ABG HCO3 ABG O2 Saturation ABG Base Excess FiO2 Sodium Potassium Chloride Carbon Dioxide Anion Gap BUN Creatinine Est GFR ( Amer) Glucose Calcium Phosphorus Magnesium Total Bilirubin AST Alkaline Phosphatase Total Protein Albumin TSH 0.31 L 07/29/19 07/29/19 07/29/19 00:52 00:52 06:40 Troponin I < 0.012 < 0.012 NT-Pro-B Natriuret Pep 140 H Impressions: Chest X-Ray 07/28/19 18:11 IMPRESSION: NO ACUTE RADIOGRAPHIC FINDING IN THE CHEST. Assessment and Plan - Diagnosis (1) Acute bronchitis Qualifiers: Bronchitis organism: unspecified organism Qualified Code(s): J20.9 - Acute bronchitis, unspecified Is this a current diagnosis for this admission?: Yes Plan: She has bronchospasm associated. We will continue with steroids and bronchodilators and will encourage ambulation. (2) Morbid obesity Is this a current diagnosis for this admission?: Yes Plan: Strongly encouraged lifestyle modification - Time Time Spent with patient: 15-24 minutes
[2019-07-29] MEDS ORDERED: LEVOFLOXACIN 750 MG TABLET PO SCH (10:00)
[2019-07-29 10:52] VITALS: BP 173/91
--- NOTE | 2019-07-30 18:43 | Left Against Medical Advice ---
Against Medical Advice Admission Date/Time: Primary Care Provider: Date of Patient Emigration: 07/29/19 - Diagnosis: (1) Acute bronchitis Is this a current diagnosis for this admission?: Yes (2) Morbid obesity Is this a current diagnosis for this admission?: Yes - Summary: Summary: Please see Admission and Progress Notes as well. GAVI KENNEDY is a 33 F, who LEFT AGAINST MEDICAL ADVICE. The Patient was admitted on 07/28/19.
== END 2019-07-29 10:51 | disposition left against medical advice (07) | DRG 203 ==
LOC: ER 17:35 → EH 22:39 → UNDOADMIN 23:51 → EH 23:51 → UNDODISIN 07-29 10:28 → ER 07-29 10:51
PROVIDERS: ADMIT Internal Medicine; ATTEND Internal Medicine
PROC: 5A09357 Assistance with Respiratory Ventilation, Less than 24 Consecutive Hours, Continuous Positive Airway Pressure (ICD-10-PCS; principal; 2019-07-28)
DX: J20.9 Acute bronchitis, unspecified (principal); E66.01 Morbid (severe) obesity due to excess calories; J01.90 Acute sinusitis, unspecified; Z90.49 Acquired absence of other specified parts of digestive tract; N83.209 Unspecified ovarian cyst, unspecified side
CPT/HCPCS: 36415; 36600; 71046; 80048; 80053; 82803; 83735; 83880; 84100; 84443; 84484; 85025; 94640; 94660; 96365; 96375; 99285; J1644; J2930; J3475; J7512; J7620

== ENCOUNTER 2020-04-21 21:26 | Emergency (ER) | payer SELFPAY ==
[2020-04-21] MEDS ORDERED: HYDROCODONE/ACETAMINOPHEN 5-325 MG TABLET PO ONE (22:31)
--- NOTE | 2020-04-21 22:33 | ER Document Report ---
ED Medical Screen (RME) - General Chief Complaint: Foot Pain Stated Complaint: RIGHT FOOT SWOLLEN Time Seen by Provider: 04/21/20 22:24 Mode of Arrival: Ambulatory Information source: Patient Notes: HPI; 32-year-old female past medical history significant for swelling in her feet presents to the emergency room complaining of worsening swelling and pain to her right lateral foot for the past 6 months. States she is been seen at a different emergency room where she had x-rays, MRI, ultrasound to rule out a DVT and the only diagnosis they could give her was arthritis. Patient states she n ormally takes Lasix for her swelling but has not had any in the past 4 months that she does not have a local primary care doctor. She denies any trauma or injury to her foot. Has been taking Tylenol and ibuprofen without relief. Denies any recent travel. No COVID-19 exposure. No history of DVTs or PEs. Not on any type of oral contraceptives. PE: Alert and oriented x3. Moderate distress noted. Lungs: Clear to auscultation without rales, rhonchi, wheezes. Heart: Regular rate and rhythm without murmurs, rubs, gallops. 2+ pitting edema bilaterally. Right lateral distal foot with swelling and tenderness to palpation. Positive right pedal pulse. I have greeted and performed a rapid initial assessment of this patient. A comprehensive ED assessment and evaluation of the patient, analysis of test results and completion of the medical decision making process will be conducted by additional ED providers. I have specifically instructed the patient or family members with the patient to immediately return to any nursing staff should anything change in the patient's condition or with their chief complaint. TRAVEL OUTSIDE OF THE [place] IN LAST 30 DAYS: No - Related Data Allergies/Adverse Reactions: No Known Allergies Allergy (Verified 07/28/19 17:58) Past Medical History - Social History Family history: DM, Other - renal disease Renal/ Medical History: Reports: Hx Ovarian Cysts - PCO S Past Surgical History: Reports: Hx Adenoidectomy, Hx Cholecystectomy, Hx Tonsillectomy - Immunizations Immunizations up to date: Yes Hx Diphtheria, Pertussis, Tetanus Vaccination: Yes Physical Exam - Vital signs Vitals: Temp Pulse Resp BP Pulse Ox 98.5 F 99 16 135/72 H 100 04/21/20 21:30 04/21/20 21:30 04/21/20 21:30 04/21/20 21:30 04/21/20 21:30 Course - Vital Signs Vital signs: Temp Pulse Resp BP Pulse Ox 98.5 F 99 16 135/72 H 100 04/21/20 21:30 04/21/20 21:30 04/21/20 21:30 04/21/20 21:30 04/21/20 21:30
[2020-04-21 23:13] LABS: APPEARANCE,URINE SLIGHTLY-CLOUDY; BILIRUBIN,URINE NEGATIVE (NEGATIVE); COLOR,URINE YELLOW; GLUCOSE, URINE NEGATIVE (NEGATIVE); KETONES,URINE NEGATIVE (NEGATIVE); LEUKOCYTE ESTERASE,URINE TRACE (NEGATIVE); NITRITE,URINE NEGATIVE (NEGATIVE); PROTEIN,URINE NEGATIVE (NEGATIVE); URINE SPECIFIC GRAVITY 1.023; UROBILINOGEN,URINE NEGATIVE mg/dL (<2.0)
--- NOTE | 2020-04-21 23:20 | RADIOLOGY REPORT (SQ) ---
CLINICAL INDICATION: pedal edema. TECHNIQUE: PA and lateral views were obtained of the chest COMPARISON: None. FINDINGS: The cardiomediastinal silhouette is normal. The lungs are grossly clear. No evidence of effusion or pneumothorax. Visualized bones are unremarkable. . IMPRESSION: No evidence of active intrathoracic disease .
--- NOTE | 2020-04-21 23:21 | RADIOLOGY REPORT (SQ) ---
CLINICAL INDICATION: pain. . TECHNIQUE: 3 view(s) were obtained of the right foot. COMPARISON: None. FINDINGS: No acute displaced fracture is identified of the foot. Alignment appears anatomic. Joint spaces are within normal limits for age. Soft tissue swelling. Anterior and posterior calcaneal spurring. IMPRESSION: No evidence of acute displaced fracture of the foot.
[2020-04-22 02:57] LABS: ABSOLUTE BASOPHILS # (AUTO) 0.1 10^3/uL (0.0-0.2); ABSOLUTE EOSINOPHILS # (AUTO) 0.3 10^3/uL (0.0-0.6); ABSOLUTE LYMPHOCYTES (AUTO) 4.3 10^3/uL (0.5-4.7); ABSOLUTE MONOCYTES (AUTO) 0.8 10^3/uL (0.1-1.4); ABSOLUTE NEUT (AUTO) 6.2 10^3/uL (1.7-8.2); BASOPHILS % (AUTO) 0.8 % (0-2); EOSINOPHILS % (AUTO) 2.3 % (0-6); HEMATOCRIT 43.3 % (36.0-47.0); HEMOGLOBIN 14.9 g/dL (12.0-15.5); LYMPHOCYTES % (AUTO) 36.8 % (13-45); MEAN CORPUSCULAR HEMOGLOBIN 30.2 pg (27.0-33.4); MEAN CORPUSCULAR HGB CONC 34.5 g/dL (32.0-36.0); MEAN CORPUSCULAR VOLUME 88 fl (80-97); MONOCYTES % (AUTO) 6.9 % (3-13); PLATELET COUNT 190 10^3/uL (150-450); RED BLOOD COUNT 4.94 10^6/uL (3.72-5.28); RED CELL DISTRIBUTION WIDTH 13.6 % (11.5-14.0); SEGMENTED NEUTROPHILS % (AUTO) 53.2 % (42-78); TOTAL CELLS COUNTED % (AUTO) 100 %; WHITE BLOOD COUNT 11.6 10^3/uL (4.0-10.5)
[2020-04-22 03:17] LABS: ALBUMIN 3.7 g/dL (3.5-5.0); ALKALINE PHOSPHATASE 117 U/L (38-126); ANION GAP 5 (5-19); ASPARTATE AMINO TRANSFERASE 26 U/L (14-36); BILIRUBIN,TOTAL 0.4 mg/dL (0.2-1.3); BLOOD UREA NITROGEN 13 mg/dL (7-20); CARBON DIOXIDE 25 mmol/L (22-30); CHLORIDE 109 mmol/L (98-107); GLUCOSE 96 mg/dL (75-110); POTASSIUM 4.3 mmol/L (3.6-5.0); TOTAL PROTEIN 6.9 g/dL (6.3-8.2)
[2020-04-22 04:26] VITALS: BP 132/72
--- NOTE | 2020-04-22 04:30 | ER Document Report ---
ED Extremity Problem, Lower - General Chief Complaint: Ankle Swelling Stated Complaint: RIGHT FOOT SWOLLEN Time Seen by Provider: 04/21/20 22:24 Primary Care Provider: [facility] [Provider Group] - Follow up in 3-5 days [facility] [Provider Group] - Follow up in 3-5 days Mode of Arrival: Ambulatory Notes: Patient is a 34-year-old female who presents emergency department with a chief complaint of swelling to bilateral feet. Patient states that she used to take Lasix, 40 mg twice a day, but ran out of her medication about 4 months ago. Patient states that she was seen in other emergency departments and had x-rays and MRIs done, but was only diagnosed with arthritis. Patient reports she has had Doppler studies done, which were negative. Denies any shortness of breath or difficulty breathing. TRAVEL OUTSIDE OF THE [place] IN LAST 30 DAYS: No - Related Data Allergies/Adverse Reactions: No Known Allergies Allergy (Verified 07/28/19 17:58) Home Medications: Lasix Past Medical History - General Information source: Patient - Social History Smoking Status: Never Smoker Family History: Reviewed & Not Pertinent Renal/ Medical History: Reports: Hx Ovarian Cysts - PCO S Past Surgical History: Reports: Hx Adenoidectomy, Hx Cholecystectomy, Hx Tonsillectomy - Immunizations Immunizations up to date: Yes Hx Diphtheria, Pertussis, Tetanus Vaccination: Yes Review of Systems - Review of Systems Notes: REVIEW OF SYSTEMS: CONSTITUTIONAL : Denies recent illness. Denies recent unintentional weight loss. Denies fever, chills, or sweats. EENT: Denies eye, ear, throat, or mouth pain, discharge, or symptoms. Denies nasal or sinus congestion. CARDIOVASCULAR: Denies chest pain. RESPIRATORY: Denies shortness of breath, cough, congestion, difficulty breathing, or wheezing. GASTROINTESTINAL: Denies nausea, vomiting, and diarrhea. Denies abdominal pain. Denies constipation. GENITOURINARY: Denies difficulty urinating, burning, blood in urine, urgency or frequency. MUSCULOSKELETAL: Denies neck and back pain. See HPI. SKIN: Denies rash, itchiness, or lesions HEMATOLOGIC : Denies easy bruising or bleeding. LYMPHATIC: Denies swollen, painful, enlarged glands. NEUROLOGICAL: Denies no numbness or tingling denies weakness. Denies headache. Denies altered mental status. Denies alteration in speech. PSYCHIATRIC: Denies stress, anxiety, alteration in sleep patterns, or depression. All other systems reviewed and negative. Physical Exam - Vital signs Vitals: Temp Pulse Resp BP Pulse Ox 98.5 F 99 16 135/72 H 100 04/21/20 21:30 04/21/20 21:30 04/21/20 21:30 04/21/20 21:30 04/21/20 21:30 - Notes Notes: PHYSICAL EXAMINATION: GENERAL: Appears well, healthy, well-nourished, no acute distress. HEAD: Normocephalic, atraumatic. EYES: PERRL, conjunctiva normal, all extraocular movements intact, sclera nonicteric ENT: Moist mucous membranes. NECK: Supple, no noticeable swelling, redness, rash. Normal range of motion. LUNGS: Equal breath sounds bilaterally and clear to auscultation. No wheezes rales or rhonchi. CARDIOVASCULAR: S1-S2, regular rate, regular rhythm. Radial pulses 2+, normal. ABDOMEN: Normoactive bowel sounds. Soft, nontender, no guarding, no rebound tenderness, and no masses palpated. EXTREMITIES: Normal strength and range of motion, mild edema noted to right lowe r extremity with tenderness noted to right calcaneus area. NEUROLOGICAL: Moves all extremities upon command. Strength 5/5 in all extremities. PSYCH: Normal mood, normal affect. SKIN: Warm, dry. No rash, lesions, ulcerations noted. Normal skin turgor. Course - Re-evaluation Re-evalutation: 04/22/20 Calcaneus spurring noted to the areas of tenderness in her right foot. No fractures noted per radiologist. Chest x-ray is unremarkable. Hematology shows a leukocytosis of 11,600, but this is undifferentiated. No evidence of cellulitis noted. Chemistries are unremarkable. LFTs are normal. BNP is 48. Urinalysis is unremarkable. We will start the patient on Lasix, she is supposed to be on this medication. Patient appears well. No evidence of sepsis noted. She currently does not have insurance, but she just started as a [employer]. States that she will get insurance within the next 3 months. Advised her to follow-up with podiatry in regards to the bone spurs. She is in agreement with this plan. Follow-up precautions were given. Verbal discharge instructions were given to the patient. They verbalized understanding. They are stable for discharge. - Vital Signs Vital signs: Temp Pulse Resp BP Pulse Ox 98.6 F 86 18 132/72 H 98 04/22/20 04:25 04/22/20 04:25 04/22/20 04:25 04/22/20 04:25 04/22/20 04:25 - Laboratory Result Diagrams: 04/22/20 02:46 04/22/20 02:46 Laboratory results interpreted by me: 04/21/20 04/22/20 04/22/20 22:49 02:46 02:46 WBC 11.6 H Chloride 109 H Ur Leukocyte Esterase TRACE H Discharge - Discharge Clinical Impression: Swelling of both lower extremities Disposition: HOME, SELF-CARE Additional Instructions: You were seen today in the emergency department for swelling in both your legs. You are being started back on Lasix, but on a smaller dosage. Please follow-up with 1 of the clinics below. You also have some bone spurs noted on your x-ray. When you get your insurance reinstated, you can follow-up with podiatry. Prescriptions: Furosemide [Lasix 20 mg Tablet] 20 mg PO BID #20 tablet Forms: Return to Work Referrals: [facility] [Provider Group] - Follow up in 3-5 days [facility] [Provider Group] - Follow up in 3-5 days
== END 2020-04-22 04:34 | disposition home or self-care (01) ==
LOC: ER 21:26
DX: M79.89 Other specified soft tissue disorders (principal); R60.0 Localized edema; M77.31 Calcaneal spur, right foot; D72.829 Elevated white blood cell count, unspecified
CPT/HCPCS: 36415; 71046; 80053; 81001; 81025; 83880; 85025; 99283